=== PATIENT | male | born 1945 | race Caucasian/White ===

== ENCOUNTER 2017-10-02 08:00 | Outpatient (CLI) | payer MEDICARE, OTHER ==
[2017-10-02 18:53] LABS: ALBUMIN/GLOBULIN RATIO 1.3 (1.0-2.2); BILIRUBIN,TOTAL 0.6 mg/dL (0.2-1.0); BUN - BLOOD UREA NITROGEN 13 mg/dL (6-20); CARBON DIOXIDE - CO2 30 mmol/L (21-32); CHLORIDE 104 mmol/L (101-111); CHOL/HDL RATIO 3.4 (<5.0); CHOLESTEROL 137 mg/dL; GFR - MDRD 74 (>89); GLUCOSE 89 mg/dL (70-100); HDL CHOLESTEROL 40 mg/dL; POTASSIUM 3.4 mmol/L (3.5-5.0); SODIUM 140 mmol/L (135-145); TRIGLYCERIDES 82 mg/dL; VLDL CHOLESTEROL 16 mg/dL
== END 2017-10-02 08:01 | disposition home or self-care (01) ==
LOC: LAB.F 08:00
PROVIDERS: ATTEND Family Medicine
DX: E78.5 Hyperlipidemia, unspecified (principal); Z12.5 Encounter for screening for malignant neoplasm of prostate; I25.10 Atherosclerotic heart disease of native coronary artery without angina pectoris; I10 Essential (primary) hypertension
CPT/HCPCS: 36415; 80053; 80061; G0103; 84153

== ENCOUNTER 2018-08-13 12:33 | Outpatient (CLI) | payer MEDICARE, OTHER ==
[2018-08-13 18:26] LABS: ALBUMIN/GLOBULIN RATIO 1.3 (1.0-2.2); ALKALINE PHOSPHATASE 64 IU/L (42-121); ALT ALANINE AMINOTRANSFERASE 20 IU/L (10-60); AST ASPARTATE AMINOTRANSFERASE 21 IU/L (10-42); BILIRUBIN,TOTAL 1.1 mg/dL (0.2-1.0); BUN - BLOOD UREA NITROGEN 17 mg/dL (6-20); CALCIUM 9.2 mg/dL (8.5-10.3); CARBON DIOXIDE - CO2 30 mmol/L (21-32); CHLORIDE 101 mmol/L (101-111); CHOL/HDL RATIO 4.2 (<5.0); CHOLESTEROL 137 mg/dL; CREATININE 0.9 mg/dL (0.6-1.2); GFR - MDRD 83 (>89); GLUCOSE 89 mg/dL (70-100); HDL CHOLESTEROL 33 mg/dL; LDL CHOLESTEROL,CALCULATED 79 mg/dL; LDL/HDL RATIO 2.4 (<3.6); SODIUM 138 mmol/L (135-145); TOTAL PROTEIN 7.1 g/dL (6.7-8.2); VLDL CHOLESTEROL 25 mg/dL
== END 2018-08-13 12:34 | disposition home or self-care (01) ==
LOC: LAB.F 12:33
PROVIDERS: ATTEND Internal Medicine
DX: E78.5 Hyperlipidemia, unspecified (principal); I21.3 ST elevation (STEMI) myocardial infarction of unspecified site
CPT/HCPCS: 36415; 80053; 80061; 83721

== ENCOUNTER 2019-04-29 13:59 | Outpatient (CLI) | payer MEDICARE, OTHER ==
[2019-04-29 17:35] LABS: MEAN CORPUSCULAR HEMOGLOBIN 27.2 pg (27.0-31.0); MEAN CORPUSCULAR HGB CONC 32.3 g/dL (32.0-36.0); MEAN CORPUSCULAR VOLUME 84.3 fL (80.0-94.0); MEAN PLATELET VOLUME 10.6 fL (7.4-11.4); RED BLOOD COUNT 5.15 10^6/uL (4.70-6.10); RED CELL DISTRIBUTION WIDTH 15.5 % (12.0-15.0); WHITE BLOOD COUNT 3.4 x10^3/uL (4.8-10.8)
[2019-04-29 18:02] LABS: ALBUMIN/GLOBULIN RATIO 1.3 (1.0-2.2); ALKALINE PHOSPHATASE 54 IU/L (42-121); ALT ALANINE AMINOTRANSFERASE 23 IU/L (10-60); AST ASPARTATE AMINOTRANSFERASE 22 IU/L (10-42); BILIRUBIN,TOTAL 1.3 mg/dL (0.2-1.0); BUN - BLOOD UREA NITROGEN 15 mg/dL (6-20); CALCIUM 9.2 mg/dL (8.5-10.3); CARBON DIOXIDE - CO2 27 mmol/L (21-32); CHLORIDE 106 mmol/L (101-111); CHOL/HDL RATIO 3.8 (<5.0); CHOLESTEROL 135 mg/dL; CREATININE 0.9 mg/dL (0.6-1.2); GFR - MDRD 83 (>89); GLUCOSE 92 mg/dL (70-100); HDL CHOLESTEROL 36 mg/dL; LDL CHOLESTEROL,CALCULATED 84 mg/dL; LDL/HDL RATIO 2.3 (<3.6); SODIUM 143 mmol/L (135-145); TOTAL PROTEIN 7.1 g/dL (6.7-8.2); VLDL CHOLESTEROL 15 mg/dL
== END 2019-04-29 14:00 | disposition home or self-care (01) ==
LOC: LAB.S 13:59
PROVIDERS: ATTEND Internal Medicine
DX: E78.5 Hyperlipidemia, unspecified (principal); Z12.5 Encounter for screening for malignant neoplasm of prostate; I10 Essential (primary) hypertension
CPT/HCPCS: 36415; 80053; 80061; 84443; 85027; G0103; 83721; 84153

== ENCOUNTER 2020-06-21 11:44 | Outpatient (CLI) | payer MEDICARE, OTHER ==
[2020-06-21 15:34] LABS: HGB - HEMOGLOBIN 14.4 g/dL (14.0-18.0); MEAN CORPUSCULAR HEMOGLOBIN 26.5 pg (27.0-31.0); MEAN CORPUSCULAR HGB CONC 31.3 g/dL (32.0-36.0); MEAN CORPUSCULAR VOLUME 84.6 fL (80.0-94.0); MEAN PLATELET VOLUME 10.5 fL (7.4-11.4); RED BLOOD COUNT 5.44 10^6/uL (4.70-6.10); RED CELL DISTRIBUTION WIDTH 15.2 % (12.0-15.0); WHITE BLOOD COUNT 3.8 x10^3/uL (4.8-10.8)
[2020-06-21 16:37] LABS: ALBUMIN 4.2 g/dL (3.2-5.5); ALBUMIN/GLOBULIN RATIO 1.3 (1.0-2.2); ALKALINE PHOSPHATASE 55 IU/L (42-121); ALT ALANINE AMINOTRANSFERASE 18 IU/L (10-60); AST ASPARTATE AMINOTRANSFERASE 16 IU/L (10-42); BILIRUBIN,TOTAL 1.2 mg/dL (0.2-1.0); BUN - BLOOD UREA NITROGEN 14 mg/dL (6-20); CALCIUM 9.3 mg/dL (8.5-10.3); CARBON DIOXIDE - CO2 25 mmol/L (21-32); CHLORIDE 104 mmol/L (101-111); CHOL/HDL RATIO 3.8 (<5.0); CHOLESTEROL 147 mg/dL; CREATININE 0.9 mg/dL (0.6-1.2); GLUCOSE 93 mg/dL (70-100); HDL CHOLESTEROL 39 mg/dL; LDL CHOLESTEROL,CALCULATED 93 mg/dL; LDL/HDL RATIO 2.4 (<3.6); SODIUM 138 mmol/L (135-145); TOTAL PROTEIN 7.4 g/dL (6.7-8.2); VLDL CHOLESTEROL 15 mg/dL
== END 2020-06-21 11:45 | disposition home or self-care (01) ==
LOC: LAB.S 11:44
PROVIDERS: ATTEND Internal Medicine
DX: E78.5 Hyperlipidemia, unspecified (principal); N40.1 Benign prostatic hyperplasia with lower urinary tract symptoms; N13.8 Other obstructive and reflux uropathy; I10 Essential (primary) hypertension
CPT/HCPCS: 36415; 80053; 80061; 83721; 84153; 85027

== ENCOUNTER 2021-04-02 10:43 | Outpatient (CLI) | payer MEDICARE, OTHER ==
[2021-04-02 14:44] LABS: BASOPHILS % (AUTO) 0.4 %; HCT - HEMATOCRIT 44.1 % (42.0-52.0); HGB - HEMOGLOBIN 14.2 g/dL (14.0-18.0); LYMPHOCYTES # (AUTO) 0.6 10^3/uL (1.5-3.5); LYMPHOCYTES % (AUTO) 22.7 %; MEAN CORPUSCULAR HEMOGLOBIN 27.8 pg (27.0-31.0); MEAN CORPUSCULAR HGB CONC 32.2 g/dL (32.0-36.0); MEAN CORPUSCULAR VOLUME 86.5 fL (80.0-94.0); MEAN PLATELET VOLUME 11.4 fL (7.4-11.4); MONOCYTES # (AUTO) 0.6 10^3/uL (0.0-1.0); MONOCYTES % (AUTO) 21.2 %; NEUTROPHILS # (AUTO) 1.5 10^3/uL (1.5-6.6); NEUTROPHILS % (AUTO) 53.8 %; PLT - PLATELET COUNT 98 10^3/uL (130-450); RED CELL DISTRIBUTION WIDTH 15.9 % (12.0-15.0); WHITE BLOOD COUNT 2.7 x10^3/uL (4.8-10.8)
[2021-04-02 15:43] LABS: ALBUMIN 4.2 g/dL (3.2-5.5); ALBUMIN/GLOBULIN RATIO 1.4 (1.0-2.2); ALKALINE PHOSPHATASE 73 IU/L (42-121); ALT ALANINE AMINOTRANSFERASE 16 IU/L (10-60); AST ASPARTATE AMINOTRANSFERASE 14 IU/L (10-42); BUN - BLOOD UREA NITROGEN 15 mg/dL (6-20); CALCIUM 9.4 mg/dL (8.5-10.3); CARBON DIOXIDE - CO2 28 mmol/L (21-32); CHLORIDE 104 mmol/L (101-111); CHOL/HDL RATIO 4.3 (<5.0); CHOLESTEROL 147 mg/dL; GFR - MDRD 73 (>89); GLUCOSE 92 mg/dL (70-100); HDL CHOLESTEROL 34 mg/dL; LDL CHOLESTEROL,CALCULATED 99 mg/dL; LDL/HDL RATIO 2.9 (<3.6); POTASSIUM 3.9 mmol/L (3.5-5.0); SODIUM 142 mmol/L (135-145); TOTAL PROTEIN 7.2 g/dL (6.7-8.2); TRIGLYCERIDES 71 mg/dL; VLDL CHOLESTEROL 14 mg/dL
[2021-04-02 16:13] LABS: RBC MORPHOLOGY (MULTIPLE) NORMAL APPEARANCE (NORMAL)
[2021-04-02 16:14] LABS: DIFFERENTIAL COMMENT MANUAL=AUTO DIFF; PLATELET ESTIMATE, MANUAL DECREASED (<130,000) (NORMAL); PLATELET MORPHOLOGY NORMAL APPEARANCE (NORMAL)
== END 2021-04-02 10:44 | disposition home or self-care (01) ==
LOC: LAB.S 10:43
PROVIDERS: ATTEND Internal Medicine
DX: I10 Essential (primary) hypertension (principal); E78.5 Hyperlipidemia, unspecified; Z12.5 Encounter for screening for malignant neoplasm of prostate
CPT/HCPCS: 36415; 80053; 80061; 85025; G0103; 83721; 84153

== ENCOUNTER 2021-04-09 12:26 | Outpatient (CLI) | payer MEDICARE, OTHER ==
[2021-04-09 15:55] LABS: HCT - HEMATOCRIT 42.7 % (42.0-52.0); HGB - HEMOGLOBIN 13.8 g/dL (14.0-18.0); MEAN CORPUSCULAR HEMOGLOBIN 27.9 pg (27.0-31.0); MEAN CORPUSCULAR HGB CONC 32.3 g/dL (32.0-36.0); MEAN CORPUSCULAR VOLUME 86.3 fL (80.0-94.0); MEAN PLATELET VOLUME 10.9 fL (7.4-11.4); NEUTROPHILS % (AUTO) 43.5 %; PLT - PLATELET COUNT 104 10^3/uL (130-450); RED BLOOD COUNT 4.95 10^6/uL (4.70-6.10); RED CELL DISTRIBUTION WIDTH 15.9 % (12.0-15.0)
[2021-04-09 16:22] LABS: ABNORMAL LYMPHS % (MANUAL) 0 %
[2021-04-09 16:41] LABS: BAND NEUTROPHILS % (MANUAL) 1 %; LYMPHOCYTES # (MANUAL) 0.8 10^3/uL (1.5-3.5); LYMPHOCYTES % (MANUAL) 28 %; MONOCYTES # (MANUAL) 0.3 10^3/uL (0.0-1.0); NEUTROPHILS # (MANUAL) 0.9 10^3/uL (1.5-6.6); REACTIVE LYMPHS % (MANUAL) 12 %
[2021-04-09 16:42] LABS: DIFFERENTIAL COMMENT MANUAL DIFFERENTIAL; PLATELET ESTIMATE, MANUAL DECREASED (<130,000) (NORMAL); PLATELET MORPHOLOGY NORMAL APPEARANCE (NORMAL); RBC MORPHOLOGY (MULTIPLE) 1+ ANISOCYTOSIS (NORMAL)
[2021-04-11 13:26] LABS: IMMUNOGLOBULIN A 274 mg/dL (70-320); IMMUNOGLOBULIN G 1043 mg/dL (600-1540); IMMUNOGLOBULIN M 129 mg/dL (50-300)
[2021-04-11 22:37] LABS: ALBUMIN 3.8 g/dL (3.8-4.8); ALPHA 1 GLOBULIN 0.3 g/dL (0.2-0.3); ALPHA 2 GLOBULIN 0.7 g/dL (0.5-0.9); BETA 1 GLOBULIN 0.4 g/dL (0.4-0.6); BETA 2 GLOBULIN 0.4 g/dL (0.2-0.5)
== END 2021-04-09 12:27 | disposition home or self-care (01) ==
LOC: LAB.S 12:26
PROVIDERS: ATTEND Internal Medicine
DX: D69.6 Thrombocytopenia, unspecified (principal); D72.819 Decreased white blood cell count, unspecified; I10 Essential (primary) hypertension
CPT/HCPCS: 36415; 81599; 82784; 83615; 84155; 84165; 85025; 86334; 86335

== ENCOUNTER 2021-04-23 11:18 | Outpatient (CLI) | payer MEDICARE, OTHER ==
[2021-04-23 16:26] LABS: BASOPHILS % (AUTO) 0.4 %; HGB - HEMOGLOBIN 13.4 g/dL (14.0-18.0); LYMPHOCYTES % (AUTO) 29.1 %; MEAN CORPUSCULAR HEMOGLOBIN 27.5 pg (27.0-31.0); MEAN CORPUSCULAR HGB CONC 31.2 g/dL (32.0-36.0); MEAN CORPUSCULAR VOLUME 88.1 fL (80.0-94.0); MEAN PLATELET VOLUME 11.5 fL (7.4-11.4); MONOCYTES % (AUTO) 29.8 %; NEUTROPHILS % (AUTO) 38.4 %; PLT - PLATELET COUNT 76 10^3/uL (130-450); RED BLOOD COUNT 4.88 10^6/uL (4.70-6.10); RED CELL DISTRIBUTION WIDTH 16.4 % (12.0-15.0); WHITE BLOOD COUNT 2.6 x10^3/uL (4.8-10.8)
[2021-04-23 16:30] LABS: ABNORMAL LYMPHS % (MANUAL) 0 %; BAND NEUTROPHILS % (MANUAL) 0 %
[2021-04-23 17:11] LABS: LYMPHOCYTES # (MANUAL) 1.4 10^3/uL (1.5-3.5); LYMPHOCYTES % (MANUAL) 47 %; MONOCYTES # (MANUAL) 0.3 10^3/uL (0.0-1.0); NEUTROPHILS # (MANUAL) 0.9 10^3/uL (1.5-6.6); REACTIVE LYMPHS % (MANUAL) 7 %
[2021-04-23 17:12] LABS: DIFFERENTIAL COMMENT MANUAL DIFFERENTIAL; PLATELET ESTIMATE, MANUAL DECREASED (<130,000) (NORMAL); PLATELET MORPHOLOGY NORMAL APPEARANCE (NORMAL); RBC MORPHOLOGY (MULTIPLE) NORMAL APPEARANCE (NORMAL)
== END 2021-04-23 11:19 | disposition home or self-care (01) ==
LOC: LAB.S 11:18
PROVIDERS: ATTEND Internal Medicine
DX: D72.819 Decreased white blood cell count, unspecified (principal)
CPT/HCPCS: 36415; 85025

== ENCOUNTER 2021-05-08 11:25 | Outpatient (CLI) | payer MEDICARE, OTHER ==
[2021-05-08 14:53] LABS: BASOPHILS % (AUTO) 0.5 %; HCT - HEMATOCRIT 41.4 % (42.0-52.0); HGB - HEMOGLOBIN 13.2 g/dL (14.0-18.0); LYMPHOCYTES % (AUTO) 28.9 %; MEAN CORPUSCULAR HEMOGLOBIN 28.2 pg (27.0-31.0); MEAN CORPUSCULAR HGB CONC 31.9 g/dL (32.0-36.0); MEAN CORPUSCULAR VOLUME 88.5 fL (80.0-94.0); MEAN PLATELET VOLUME 10.5 fL (7.4-11.4); MONOCYTES % (AUTO) 22.4 %; NEUTROPHILS % (AUTO) 45.7 %; PLT - PLATELET COUNT 54 10^3/uL (130-450); RED BLOOD COUNT 4.68 10^6/uL (4.70-6.10); RED CELL DISTRIBUTION WIDTH 16.6 % (12.0-15.0)
[2021-05-08 15:17] LABS: SLIDE REVIEW? Indicated
[2021-05-08 15:19] LABS: BAND NEUTROPHILS % (MANUAL) 0 %
[2021-05-08 15:47] LABS: ABNORMAL LYMPHS % (MANUAL) 6 %; LYMPHOCYTES # (MANUAL) 0.6 10^3/uL (1.5-3.5); LYMPHOCYTES % (MANUAL) 23 %; MONOCYTES # (MANUAL) 0.5 10^3/uL (0.0-1.0); NEUTROPHILS # (MANUAL) 0.9 10^3/uL (1.5-6.6)
[2021-05-08 15:48] LABS: DIFFERENTIAL COMMENT MANUAL DIFFERENTIAL; PLATELET ESTIMATE, MANUAL DECREASED (<130,000) (NORMAL); PLATELET MORPHOLOGY NORMAL APPEARANCE (NORMAL); RBC MORPHOLOGY (MULTIPLE) NORMAL APPEARANCE (NORMAL)
== END 2021-05-08 11:26 | disposition home or self-care (01) ==
LOC: LAB.S 11:25
PROVIDERS: ATTEND Internal Medicine
DX: D72.819 Decreased white blood cell count, unspecified (principal)
CPT/HCPCS: 36415; 85025

== ENCOUNTER 2021-05-25 09:16 | Outpatient (CLI) | payer MEDICARE, OTHER ==
[2021-05-25] MEDS ORDERED: LACTATED RINGERS 1,000 ML IV ONE ×2 (09:37→12:28)
[2021-05-25 11:15] LABS: BASOPHILS % (AUTO) 0.6 %; HCT - HEMATOCRIT 41.4 % (42.0-52.0); HGB - HEMOGLOBIN 13.6 g/dL (14.0-18.0); LYMPHOCYTES % (AUTO) 28.6 %; MEAN CORPUSCULAR HEMOGLOBIN 28.6 pg (27.0-31.0); MEAN CORPUSCULAR HGB CONC 32.9 g/dL (32.0-36.0); MEAN CORPUSCULAR VOLUME 87.2 fL (80.0-94.0); MEAN PLATELET VOLUME 9.9 fL (7.4-11.4); MONOCYTES % (AUTO) 34.2 %; NEUTROPHILS % (AUTO) 32.9 %; RED BLOOD COUNT 4.75 10^6/uL (4.70-6.10); RED CELL DISTRIBUTION WIDTH 16.3 % (12.0-15.0)
[2021-05-25 11:17] LABS: PLT - PLATELET COUNT 30 10^3/uL (130-450); WHITE BLOOD COUNT 1.6 x10^3/uL (4.8-10.8)
[2021-05-25 11:18] LABS: ABNORMAL LYMPHS % (MANUAL) 0 %
[2021-05-25 11:20] LABS: INR 1.2 (0.8-1.2); PT - PROTHROMBIN TIME 13.5 secs (9.9-12.6)
[2021-05-25 11:27] LABS: PARTIAL THROMBOPLASTIN TIME 31.2 secs (24.9-33.3)
[2021-05-25 11:40] LABS: BAND NEUTROPHILS % (MANUAL) 2 %; DIFFERENTIAL COMMENT MANUAL DIFFERENTIAL; LYMPHOCYTES # (MANUAL) 0.8 10^3/uL (1.5-3.5); LYMPHOCYTES % (MANUAL) 14 %; MONOCYTES # (MANUAL) 0.2 10^3/uL (0.0-1.0); NEUTROPHILS # (MANUAL) 0.6 10^3/uL (1.5-6.6); REACTIVE LYMPHS % (MANUAL) 36 %
--- NOTE | 2021-05-25 12:42 | CT Report ---
PROCEDURE: BONE MARROW BX W/ASPIRATION Sedation analgesia for (7:30 minutes. INDICATIONS: THROMBOCYTOPENIA TECHNIQUE: The indications, alternatives, benefits, risks, and possible complications of the procedure were comm unicated to the patient. Informed written consent from the patient was obtained and placed in the art. Continuous EKG and hemodynamic monitoring was started by trained personnel. For radiation dose reduction, the following was used: automated exposure control, adjustment of mA and/or kV according to patient size. The patient was brought to the CT suite and silvering applicator spiral CT imaging was performed with localization g rid. The appropriate site for percutaneous access to the biopsy target was marked, was prepped and d raped sterilely, and was infused with local anaesthesia. Under CT guidance, a 11-gauge bone drill wa s advanced to the biopsy target, and aspirated specimen(s) were obtained. The trocar was utilized to obtain a sizable core of bone marrow. The trocar and needle were then removed, and the patient was s ent for post-procedure monitoring. COMPARISON: None. FINDINGS: Biopsy site: Medial left iliac bone Needle: 11 gauge bone marrow drill Number of passes: 1 Medications: 1% lidocaine for local anaesthesia. IV Fentanyl and Versed for conscious sedation for less than 30 minutes (see nursing record). Complications: None. IMPRESSION: Successful CT-guided medial left iliac bone marrow biopsy. Comment: Procedure was performed in the presence of a cytology tech, who prepared the slides sindyi ately for bone marrow review. Reviewed by: Arturo eRinoso MD on 05/25/2021 12:40 PM PDT Approved by: Arturo Reinoso MD on 05/25/2021 12:40 PM PDT Station ID: [id number]
[2021-05-25 13:59] VITALS: BP 146/88
== END 2021-05-25 09:17 | disposition home or self-care (01) ==
LOC: LAB 09:16
PROVIDERS: ATTEND Internal Medicine
DX: D61.818 Other pancytopenia (principal)
CPT/HCPCS: 36415; 38222; 77012; 85025; 85610; 85730; J7120

== ENCOUNTER 2021-06-01 14:00 | Outpatient (CLI) | payer MEDICARE, OTHER ==
--- NOTE | 2021-06-01 16:53 | CONSULTATION NOTE ---
Palliative Care Consultation - Referral Referring Provider: Dr. Emmett Suh Time of Visit: [id number] Referral setting: Home Referral Reason: MDS/Goals of Care - Information Sources Records reviewed: Previous records reviewed History/Review of Systems obtained from: Patient, Family ( Bina present) Exam limitations: Clinical condition (anxiety with appointment) - History of Present Illness Brief History of Present Illness: This is an anxious 75-year-old gentleman who presented to his primary care provider with worsening pancytopenia. He was referred to oncology, for which she had a CT scan of the neck, abdomen and pelvis that did not show any increase lymphadenopathy, he did have a bone marrow unfortunately insufficient for complete analysis but has some pending cytogenetics and FISH. Preliminary findings show a high concern for for myelodysplastic syndrome high-grade versus AML. Patient is quite anxious this was given options in the context of how best to proceed, including intensive chemotherapy followed by consolidation and consideration of allogenic stem cell transplant with curative intent, palliative intent with venetoclax hypomethylating agent, and thirdly best supportive care/hospice. Of concern has been the rate of decline with his pancytopenia, on 05/30, his WBC was 1.6 and neutrophils 0.4, platelets had gone from 05/16 42,000 to 05/29 [id number], as well as sitting at a hemoglobin of 12.9. Patient is feeling quite overwhelmed at the time of discussion, and given the severity of his i llness, is needing to make a decision regarding which approach aligns with his goals. An urgent palliative care referral was placed to help with decision- making, and to tease out goals of care. Patient and his are appropriately distressed with current findings and limited options. Patient is quite clear at this point in time he does not want to pursue inpatient chemo/possible stem cell transplant in the context of needing to urgently be admitted and address this as well as taking the chance of poor outcome with aggressive approach. He though still is not ready to face end-of-life, he does have some short-term goals he would like to accomplish, and included in the discussion if no treatment and/or supportive care only most likely looking at days to weeks. In the context of meeting his short-term goal which is to wrap up end-of-life planning, possibly focus on some improved quality of life as well as gaining quantity decision was made to pursue palliative treatment. This involved a long discussion in clarification of understanding of options, goals, and managing concerns. Medical/Surgical History - Past Medical History Cardiovascular: reports: Hypertension, High cholesterol, Coronary artery disease Respiratory: reports: None Endocrine/Autoimmune: reports: None GI: reports: Hiatal hernia, Cholelithiasis : reports: Benign prostate hypertrophy HEENT: reports: None, Chronic vision loss Psych: reports: Anxiety Musculoskeletal: reports: None Derm: reports: None MRSA Hx?: No - Past Surgical History General: reports: Cholecystectomy, Colonoscopy Cardiovascular: reports: CABG (X4) Social History - Living Situation Living arrangement: At home Living Situation: With spouse/s.o. Support System: Patient has been to [facility] for 23 years, he does have some siblings but as far as community support and close support this is limited. 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 They have a krissy home in [place], and dogs but no children. Family History - Family History Family History: Mother: , CAD, Father: , [place], Sister: Alive and Well (o hx of ca) Medications/Allergies - Medications Home Medications: Ambulatory Orders Medication Instructions Recorded Confirmed Simvastatin 20 mg PO DAILY 03/04/14 06/01/21 Doxazosin Mesylate [Cardura] 2 mg PO DAILY 05/16/21 06/01/21 Alprazolam [Xanax] 0.25 mg PO TID PRN 06/01/21 06/01/21 Sulfamethox/Trimeth 800/160 1 tab PO .MWF 06/01/21 06/01/21 [Bactrim Ds] levoFLOXacin [Levofloxacin] 500 mg PO DAILY 06/01/21 06/01/21 - Allergies Allergies/Adverse Reactions: Allergies Allergy/AdvReac Type Severity Reaction Status Date / Time No Known Drug Allergies Allergy Verified 05/30/21 15:06 Review of Systems - Constitutional Constitutional: reports: Fatigue, Weakness, Weight loss (a couple of pounds only). denies: Fever, Chills - Eyes Eyes: reports: Corrective lenses - Cardiovascular Cardiovascular: reports: Decr. exercise tolerance. denies: Edema - Respiratory Respiratory: denies: SOB at rest - Gastrointestinal Gastrointestinal: denies: Constipation, Nausea, Reflux/heartburn - Musculoskeletal Musculoskeletal: reports: Muscle weakness - Psychiatric Psychiatric: reports: Depression, Anxiety. denies: Suicidal (reports thinking about suicide but no plans / actions at this time) - Hematologic/Lymphatic Hematologic/Lymph: reports: Anemia. denies: Recurrent infections - All Other Systems All Other Systems: reports: Reviewed and negative Physical Exam - Vital Signs Temperature: 97.2 C Pulse Rate: 71 Respiratory Rate: 18 O2 Saturation: 99 (ra @ rest) Blood Pressure: 152/92 (recently off b/p meds; reports sensitive to anxiety) - Physical Exam General Appearance: positive: Alert, Mild distress, Anxious Eyes Bilateral: positive: Normal inspection ENT: positive: No signs of dehydration Neck: positive: Trachea midline Cardiovascular: positive: Regular rate & rhythm Respiratory: positive: No respiratory distress, Breath sounds nml Abdomen: positive: Soft Skin: positive: Pallor, Dryness. negative: Bruising Extremities: positive: No pedal edema Neurologic/Psychiatric: positive: Oriented x3, Depressed mood/affect Palliative Care - POLST Patient has POLST: Yes POLST Status: DNR, Selective Treatment (completed at visit) Pain: No pain Feelings of wellbeing/Perceived Quality of Life: Fair, Worsening Constipation: No Performance Status: Patient has several acres to manage, has noted since March decreased ability to tolerate activity needed. He is hoping to get a little bit stronger to be able to complete some of his end-of-life tasks. He is managing his own ADLs at this point in time, and is presenting as an ECOG 1 - Palliative Care Discussion: Discussion centered around patient's goals and what is most important to him, he does have some tasks he would like to complete before his end-of-life. He has been working on legal and financial documents, does have DPOA and healthcare directives. Is very interested in completing the POLST. He does have a fear of blood products, in the context of negative language around cannabilism, negative language about other peoples DNA in him, finds it quite distressing, did try to address this in the context to try a different way of thinking about this with cognitive behavioral reframing. Patient is aware he will need blood products if he is to choose treatment and needed support. Bina herself is in a state of disbelief, she works through things by taking notes and processing and coming to an understanding as best she can of information given. 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 He does better with information that he can put together in his framework. We did complete the POLST with DN AR/DNI and after much discussion looked at selective treatment with DNI and willingness to treat reversible conditions in the context of where he was in his trajectory and weighing benefits of burdens. He does feel like Kaila understands his wishes. He does not want his suff ering prolonged and end-of-life would like to have a at home, Bina is and supported this. The other thing patient is interested in is with dignity being able to make a decision when he is ready for end-of-life to have that as an option. Did recommend he look at end-of-life [facility], and will try and make arrangements for Dr. Suh to have a conversation to get this in the record as a first request. Patient remains very distressed but is willing to move forward with supportive treatments, labs, and transfusions as well as chemotherapy. 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 Patient is a [facility] for setting goals of care, at this time has chosen palliative approach with chemotherapy and supportive care. Patient has high anxiety, but would like to look at both quality and quantity of life in the context of treatment. Palliative care providing support regarding goal clarification, symptom management, and anticipatory guidance. Recommendations/Counseling Done: 1. Pancytopenia. Patient has worsening leukopenia, and consultation with patient's oncologist Dr. Bri WALLIS, ordered Levaquin 500 mg daily and Bactrim DS Friday. Labs scheduled for Friday, with goal to transfuse for hemoglobin less than 7 and platelets 20,000 or less. 2. MDS high-grade. Patient's underlying etiology is still yet to be defined, but patient is choosing palliative intent treatment. This was communicated to his oncologist, there will be a repeat bone marrow biopsy as well as ordering of medications next week. 3. Anxiety. This is multifactorial, patient has underlying generalized anxiety disorder as well's situational anxiety. Discussed need to have tool in "toolbox" we will go ahead and order alprazolam 0.25 mg up to 3 times daily. Counseling provided regarding low dose, if ineffective can use 0.5 mg. We will continue to monitor anxiety as well as depression and concern for suicidal ideation. Patient without any plan at this point in time, did provide suicide prevention hotline. 4. Advanced care planning. Patient short-term goals include wrapping up affairs, as well as exploring hoping for the best with treatment to both improve quality and quantity of life. POLST was completed with DN AR/DNI and selective treatments. Long discussion regarding weighing benefits and burdens of treatments as well as patient's hope to not prolong suffering. Counseling provided regarding DWD as patient is looking that as an option. 90 minutes with greater than 50% of this done in counseling regarding goals of care, symptom management, completing POLST, and anticipatory guidance coordination of care with oncology team
== END 2021-06-01 14:01 | disposition home or self-care (01) ==
LOC: PC 14:00
PROVIDERS: ATTEND Nurse Practitioner Adult Health
DX: Z51.5 Encounter for palliative care (principal); D61.818 Other pancytopenia; Z66 Do not resuscitate; D46.9 Myelodysplastic syndrome, unspecified; F41.9 Anxiety disorder, unspecified
CPT/HCPCS: 99345

== ENCOUNTER 2021-06-22 12:51 | Outpatient (CLI) | payer MEDICARE, OTHER ==
--- NOTE | 2021-06-22 19:05 | CONSULTATION NOTE ---
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 This is been quite frustrating, as well as awaiting scheduling of Port-A-Cath.Patient tolerated fairly well except for day #1 had significant nausea and vomiting including dry heaves, Compazine was ineffective, and did receive ondansetron which she has been taking prior to injections with good response. Patient reports anxiety is been manageable, as he has gotten his head around what is going on. He is also starting to put together his end-of-life plans, getting rid of things, and finalizing legal/financial issues. He has been using the alprazolam 0.25 mg with good effect, only currently needing about 1 time a day. He has received platelets, last infusion was on Friday for platelet count of 8000. He did have some minor rectal bleeding with constipation, but no other acute signs or symptoms of bleeding. He does report significant fatigue, and low stamina including shortness of breath with activity but notes a quick recovery. Palliative care meeting with patient and to check in on how things are going, as well as adjust any quality of life issues for symptom management. Past Medical History: Hypertension, high cholesterol, CAD, cholelithiasis, BPH, chronic vision loss, anxiety, history of colonoscopy and CABG x4 Social History - Living Situation Living arrangement: At home Living Situation: With spouse/s.o. Support System: Patient has been to [place] for 23 years, does have siblings, his nephew came to assist with some things regarding getting "rid of things". He is a retired musician, they have a krissy home in [place] with dogs. Medications/Allergies - Medications Home Medications: Ambulatory Orders Medication Instructions Recorded Confirmed Simvastatin 20 mg PO DAILY 03/04/14 06/06/21 Doxazosin Mesylate [Cardura] 2 mg PO DAILY 05/16/21 06/06/21 Alprazolam [Xanax] 0.25 mg PO TID PRN 06/01/21 06/06/21 Sulfamethox/Trimeth 800/160 1 tab PO .MWF 06/01/21 06/06/21 [Bactrim Ds] levoFLOXacin [Levofloxacin] 500 mg PO DAILY 06/01/21 06/06/21 Fluconazole [Diflucan] 200 mg PO DAILY 30 Days #60 tablet 06/06/21 allopurinoL [Allopurinol] 300 mg PO DAILY #30 tablet 06/06/21 Prochlorperazine Maleate 10 mg PO Q6HR PRN #30 tab 06/11/21 [Compazine] ondansetron HCL [Ondansetron HCl] 1 mg PO Q8HR 06/14/21 06/14/21 - Allergies Allergies/Adverse Reactions: Allergies Allergy/AdvReac Type Severity Reaction Status Date / Time No Known Drug Allergies Allergy Verified 05/30/21 15:06 Review of Systems - Constitutional Constitutional: reports: Fatigue, Weakness, Weight stable. denies: Fever, Chills - Eyes Eyes: reports: Corrective lenses - Ears, Nose & Throat Ears, Nose & Throat: reports: Sore throat (has since resolved) - Cardiovascular Cardiovascular: reports: Decr. exercise tolerance. denies: Edema - Respiratory Respiratory: reports: SOB with exertion. denies: SOB at rest - Gastrointestinal Gastrointestinal: reports: Constipation (hard stool; using prunes), Nausea (reports persistent low grade), Early satiety - Musculoskeletal Musculoskeletal: reports: Muscle weakness - Integumentary Integumentary: reports: Dryness - Neurological Neurological: reports: General weakness - Psychiatric Psychiatric: reports: Depression, Anxiety. denies: Suicidal (reports thinking about suicide but no plans / actions at this time) - Hematologic/Lymphatic Hematologic/Lymph: reports: Anemia (11.7). denies: Recurrent infections - All Other Systems All Other Systems: reports: Reviewed and negative Physical Exam - Vital Signs Pulse Rate: 77 Respiratory Rate: 18 Blood Pressure: 114/81 - Physical Exam General Appearance: positive: No acute distress, Alert. negative: Anxious Eyes Bilateral: positive: Normal inspection ENT: positive: No signs of dehydration Neck: positive: Trachea midline Cardiovascular: positive: Regular rate & rhythm Respiratory: positive: No respiratory distress, Breath sounds nml Abdomen: positive: Soft Skin: positive: Pallor, Dryness. negative: Bruising Extremities: positive: No pedal edema Neurologic/Psychiatric: positive: Oriented x3, Depressed mood/affect, Flat affect Palliative Care - POLST Patient has POLST: Yes POLST Status: DNR, Selective Treatment Pain: No pain Tiredness/Fatigue: Moderate (4-6) Constipation: Yes, Intermittent constipation Performance Status: Patient able to manage his ADLs, is limited as far as endurance and activity tolerance. Is pacing himself. - Palliative Care Discussion: Patient has had a very busy schedule with his injections, blood draws, and platelet infusions. He also has been working diligently at home on his affairs and "stuff". He reports he has come to a place of managing as far as his attitude, and anxiety. He does understand the seriousness of his illness, at this point in time is tolerating treatment has been quite frustrated with the insurance approval as well as Port-A-Cath placement awaiting. Check in with both patient and in the context of how they are doing, psychosocial support and continued building rapport. Patient did complete a POLST with DN AR/DNI and selective treatments at our last visit Results - Lab Results Lab results reviewed: Yes Lab and Imaging Results: No platelets needed at 27,000, will arrange for labs on Friday. Received platelets on Friday Impression and Recommendations - Palliative Care Impression: This is a anxious 75-year-old gentleman with AML, currently has started his chemotherapy with azacitadine, still awaiting approval of Venetoclax.Patient has been tolerating with mild redness in abdomen, nausea currently controlled. Palliative care providing support for symptom management and anticipatory guidance Recommendations/Counseling Done: 1. Anxiety. Multifactorial, patient has underlying general anxiety as well as a history of depression. He has been able to use alprazolam with good results, using about one time a day. Patient is not interested in further treatment for depression, will continue to monitor, may benefit from further long-acting SSRI/SNRI but currently feels doing better. Counseling provided and support to normalize patient and 's current response to situation. 2. AML. Labs arranged to follow-up on platelet transfusion, platelets had dropped to eight, are holding at 27,000 today. Next labs are not scheduled until Friday, had received platelets Wednesday past, will make arrangements for labs on Friday and defer to oncology for further scheduling. Patient does need Port-A-Cath placement, follow-up regarding Port-A-Cath placement at [facility], unfortunately had not received the order, has been refaxed, awaiting schedule. Did review with patient, would need some coordination of care as well most likely need higher platelet count, cannot be definitive but surgeon will need to give level he is comfortable. Verbalized understanding. Patient frustrated with still awaiting his venetoclax, [facility] staff working on approval, left packet has very specific regarding their insurance plan. Still awaiting final results from bone marrow biopsy, but were obtained to send him with paperwork. 3. Constipation. Patient describes hard stools with some minor rectal bleeding that resolved with increased platelets. Discussed need to have a soft regular BM daily, secondary to infection risk and bleeding. Counseling provided regarding bowel program with addition of MiraLAX and senna. Written instructions provided. 4. Anorexia. Patient has had taste changes, as well as mild anorexia. Counseling provided regarding focus on nutrition, patient does like smoothies. Counseling reviewed regarding nutritional intake. 5. Advanced care planning. Patient does have POLST in place with DN AR/DNI and selective treatments. Is getting his financial and legal end-of-life documents completed, as well as distributing belongings. Patient aware of the seriousness of his illness, we are hoping for the best, patient continues to revisit goals of care and is aware we will need to wait several months to define if treatment effective or not. 60 minutes review of labs, oncology notes, coordination of care with oncology team regarding scheduling of labs, counseling with patient for symptom management and anticipatory guidance
== END 2021-06-22 12:52 | disposition home or self-care (01) ==
LOC: PC 12:51
PROVIDERS: ATTEND Nurse Practitioner Adult Health
DX: Z51.5 Encounter for palliative care (principal); F41.1 Generalized anxiety disorder; R68.81 Early satiety; R63.0 Anorexia; R43.9 Unspecified disturbances of smell and taste; R11.2 Nausea with vomiting, unspecified; T45.1X5A Adverse effect of antineoplastic and immunosuppressive drugs, initial encounter; K59.00 Constipation, unspecified; C92.00 Acute myeloblastic leukemia, not having achieved remission; Z79.899 Other long term (current) drug therapy; Z66 Do not resuscitate
CPT/HCPCS: 99215

== ENCOUNTER 2021-07-13 11:25 | Day surgery (SDC) | payer MEDICARE, OTHER ==
[2021-07-13] MEDS ORDERED: CEFAZOLIN SODIUM IN 0.9 % NACL 2 GM/100 ML BAG IV ONE (11:41)
[2021-07-13] MEDS ORDERED: SODIUM CHLORIDE 0.9% 1,000 ML IV ONE ×2 (11:46→15:57)
--- NOTE | 2021-07-13 14:43 | ANESTHESIA ---
Pre-Anesthesia VS, & Labs - Diagnosis AML - Procedure Exploratory laparoscopy Vital Signs: Temp Pulse Resp BP Pulse Ox 36.5 C 74 16 111/77 100 07/13/21 11:46 07/13/21 11:46 07/13/21 11:46 07/13/21 11:46 07/13/21 11:46 Height: 5 ft 6 in Weight (kg): 71.3 kg Body Mass Index: 25.3 BMI Classification: Overweight - NPO Last Food Intake: SBO, full stomach - Lab Results Current Lab Results: Laboratory Tests 07/13/21 13:38: Plt Count 74 L Fish Bones: 07/13/21 13:38 Home Medications and Allergies Alprazolam [Xanax] 0.25 mg PO TID PRN 06/01/21 Sulfamethox/Trimeth 800/160 [Bactrim Ds] 1 tab PO .MWF 06/01/21 levoFLOXacin [Levofloxacin] 500 mg PO DAILY 06/01/21 ondansetron HCL [Ondansetron HCl] 1 mg PO Q8HR 06/14/21 Allergies/Adverse Reactions: Allergies Allergy/AdvReac Type Severity Reaction Status Date / Time No Known Drug Allergies Allergy Verified 05/30/21 15:06 Anes History & Medical History - Anesthetic History Anesthesia Complications: reports: No previous complications Family history of Anesthesia Complications: Denies Family history of Malignant Hyperthermia: Denies - Medical History Cardiovascular: reports: Hypertension, Coronary artery disease Pulmonary: reports: None Gastrointestinal: reports: GERD, Hiatal hernia, Chronic constipation Urinary: reports: Benign prostate hypertrophy Musculoskeletal: reports: None Endocrine/Autoimmune: reports: None Skin: reports: Other Smoking Status: Never smoker - Surgical History General: reports: Cholecystectomy, Colonoscopy Cardiothoracic: reports: CABG Exam General: Alert, Oriented x3, Cooperative Dental: WNL Mouth Openin Fingerbreadth Neck Mobility: Normal Mallampati classification: II Thyromental Distance: 4-6 cm Respiratory: Lungs clear, Normal breath sounds, No respiratory distress Cardiovascular: Regular rate Neurological: Normal speech Mental/Cognitive Status: Alert/Oriented X3, Normal for patient Cognitive Status: Within normal limits Plan Anesthesia Type: Total IV Consent for Procedure(s) Verified and Reviewed: Yes Code Status: Attempt Resuscitation ASA classification: 3-Severe systemic disease Is this case an emergency?: No
[2021-07-13] MEDS ORDERED: PROPOFOL 500 MG/50 ML 500 MG/50 ML VIAL ONE (15:15)
[2021-07-13] MEDS ORDERED: LIDOCAINE-MPF 2% 5 ML VIAL ONE (15:15)
[2021-07-13] MEDS ORDERED: MIDAZOLAM 2 MG/2 ML VIAL ONE (15:18)
[2021-07-13] MEDS ORDERED: BUPIVACAINE 0.5% PF 10 ML VIAL ONE (15:24)
[2021-07-13] MEDS ORDERED: LIDOCAINE MPF 2%-EPI 1:200000 20 ML VIAL ONE (15:24)
[2021-07-13] MEDS ORDERED: LIDOCAINE 2%-EPI 1:100000 20 ML MDV SUBQ ONE (15:38)
[2021-07-13] MEDS ORDERED: BUPIVACAINE 0.5% PF 30 ML VIAL SUBQ ONE (15:38)
--- NOTE | 2021-07-13 16:00 | XRAY Report ---
PROCEDURE: OR C-Arm Procedure INDICATIONS: port TECHNIQUE: Single intraoperative fluoroscopic image of upper chest. COMPARISON: None. FINDINGS: Intraoperative fluoroscopic image of upper chest shows left-sided central venous catheter placement, the tip is in the region of SVC. IMPRESSION: Fluoroscopy guidance was provided intraoperatively for port placement. Reviewed by: Yevgeniy Foley MD on 07/13/2021 3:58 PM PDT Approved by: Yevgeniy Foley MD on 07/13/2021 3:58 PM PDT Station ID: [id number]
--- NOTE | 2021-07-13 16:00 | OPERATIVE REPORT ---
Operative Report - General Procedure Date: 07/13/21 Planned Procedure: Port placement for chemotherapy Pre-Op Diagnosis: Acute myelogenous leukemia Procedure Performed: Left subclavian port placement Post Op Diagnosis: AML - Procedure Note Primary Surgeon: Chen Anesthesia Provider: LITA Davis Estimated Blood Loss (mL): 5 Findings: Port in good position in the superior vena cava Complications: None apparent - Other Other Information/Narrative: After obtaining informed consent, the patient is brought to the operating room and placed in supine position on the operating table. Following successful induction of sedation with monitored anesthesia care and appropriate padding of all bony prominences, the left chest and neck were prepped and draped in the standard surgical fashion. A timeout was held per scope protocol. All elements of the surgical safety checklist were followed before, during, and after the procedure. Following infiltration with local anesthetic to create a field block, the left subclavian vein was accessed in the deltopectoral groove. The J-wire was gently placed into the vein. Fluoroscopy was used to confirm the position of the wire and in the subclavian vein. We anesthetized the existing healed scar in the area around it for placement of the port itself. An incision was created here and carried down through the skin and subcutaneous tissue. A pocket was created with blunt dissection. The port tubing was attached to the tunneling device and passed from the access site of the vein into the pocket. It was trimmed to an appropriate length and the port attached. The port was sewn into place in the pocket. The dilator and introducer were then passed over the J-wire that was in the subclavian vein. The J-wire and dilator were removed leaving only the introducer. The tubing was then passed through the introducer and the introducer cracked and removed per residential installer's directions. The port was then checked for function and flushed and latrell easily. Additional local anesthetic was applied to the chest wall. The port pocket was closed with interrupted Vicryl sutures and Monocryl stitches were placed in both skin incision sites. All sponge, needle, and instrument counts were correct at the conclusion of the case. Chest x-ray in the postanesthesia care unit revealed the port in good position in the superior vena cava without evidence of pneumothorax.
[2021-07-13] MEDS ORDERED: MORPHINE 2 MG/ML CARPUJECT IVP PRN (16:15)
[2021-07-13] MEDS ORDERED: NALOXONE 0.4 MG/ML VIAL IVP PRN (16:15)
[2021-07-13] MEDS ORDERED: HYDROmorphone 0.5 MG/0.5 ML SYRINGE IVP PRN (16:15)
[2021-07-13] MEDS ORDERED: ePHEDrine 50 MG/ML VIAL IVP PRN (16:15)
[2021-07-13] MEDS ORDERED: ATROPINE ABBOJECT 1 MG/10 ML SYRINGE IVP PRN (16:15)
[2021-07-13] MEDS ORDERED: METOCLOPRAMIDE 10 MG/2 ML VIAL IVP PRN (16:15)
[2021-07-13] MEDS ORDERED: ONDANSETRON 4 MG/2 ML VIAL IVP PRN (16:15)
[2021-07-13] MEDS ORDERED: fentaNYL 100 MCG/2 ML VIAL IVP PRN (16:15)
--- NOTE | 2021-07-13 16:34 | XRAY Report ---
PROCEDURE: Chest for Line Placement INDICATIONS: port TECHNIQUE: One view of the chest was acquired. COMPARISON: Chest CT 05/18/2021 FINDINGS: Surgical changes and devices: Left Port-A-Cath is present. Distal tip is projecting cephalad at the s ubclavian/internal jugular vein junction. Sternal wires are present including fractured superior wire . Lungs and pleura: No pleural effusions or pneumothorax. Lungs are clear. Lung apices are not inclu ded within the [id number]. Mediastinum: Mediastinal contours appear normal. Heart size is normal. Bones and chest wall: No suspicious bony lesions. Overlying soft tissues appear unremarkable. IMPRESSION: Left-sided Port-A-Cath distal tip is projecting cephalad. Repositioning is recommended. The above findings were discussed with Dr. Roxann Siddiqui on 07/13/2021 at 4:32 PM. Reviewed by: Maria Guadalupe Sanchez MD on 07/13/2021 4:32 PM PDT Approved by: Maria Guadalupe Sanchez MD on 07/13/2021 4:32 PM PDT Station ID: [id number]
[2021-07-13] MEDS ORDERED: LACTATED RINGERS 1,000 ML IV SCH (17:00)
[2021-07-13 17:13] VITALS: BP 103/62
--- NOTE | 2021-07-13 17:57 | ANESTHESIA POST OP EVALUATION ---
Anesthesia Post Eval - Post Anesthesia Eval Vitals: Last Vital Signs Temp 36.5 C 07/13/21 17:13 Pulse 64 07/13/21 17:13 Resp 16 07/13/21 17:13 BP 103/62 07/13/21 17:13 Pulse Ox 98 07/13/21 17:13
== END 2021-07-13 11:26 | disposition home or self-care (01) ==
LOC: SDS 11:25
PROVIDERS: ATTEND Surgery
DX: C92.00 Acute myeloblastic leukemia, not having achieved remission (principal); I25.10 Atherosclerotic heart disease of native coronary artery without angina pectoris; I10 Essential (primary) hypertension; N40.1 Benign prostatic hyperplasia with lower urinary tract symptoms; N13.8 Other obstructive and reflux uropathy
CPT/HCPCS: 36415; 36561; 71045; 85049; C1788; J0690

== ENCOUNTER 2021-07-17 11:00 | Outpatient (CLI) | payer MEDICARE, OTHER ==
--- NOTE | 2021-07-17 12:15 | CONSULTATION NOTE ---
Palliative Care Follow Up - Referral Referring Provider: Dr. Emmett Suh Time of Visit: 11:00 75 minutes Referral setting: [facility] [place] Referral Reason: AML/Goals of Care - Information Sources Records reviewed: Previous records reviewed History/Review of Systems obtained from: Patient, Family ( Bina) - History of Present Illness Update Brief HPI Update: This is a 75-year-old gentleman who was recently diagnosed with AML, had been struggling whether to receive treatment or not originally but had decided to move forward. Did have some goals he wanted to complete, and has been getting azacitidine initiated 06/12/2021. He has been having more symptoms, reports night sweats, evening fevers, and hypotension over last several weeks and feels the fatigue has been very limiting. He did have a fall last night, including bumping his left orbital area with bruising and bleeding. He had had a fall last night, including breaking a glass thermometer, and she found him on the floor. This was quite frightening for Bina his , today he is still feeling pretty fatigued and weak. Denies any headache. He is having some intermittent chest discomfort. He had recently met with the oncologist on 07/11/2021 and had been discussing with him as well about suicide versus DWD. Patient identifies his quality of life is continued to decline, and had expressed to the oncology nurse, about quitting treatment. In the context of this palliative care is meeting with patient and for further clarification of goals of care. Patient is feeling somewhat weak and shaky, his blood pressure is 95/63 with a pulse of 81 sitting, 93/68 with a pulse of 83 standing. He denies dizziness but does feel his blood pressure is low. His counts from yesterday WBC 1.4, hemoglobin 9.3, platelets are holding at 35. Patient last received platelets on 07/13, and has received between 8 and 9 infusions total since diagnosis. His neutrophils remain at 0.1 and lymphs at 1.3. His CMP does not show any significant abnormalities at this time. Please see palliative care discussion, after much discussion and defining patient's goals of care, decision has been made to transition to hospice. Hospice does have an opening this afternoon, will admit given patient's high risk for sequela regarding his declining counts. Past Medical History: CAD with CABG times 01/2009, cholecystectomy 2013, hypertension, high cholesterol, cholelithiasis, BPH, chronic vision loss, anxiety, history of colonoscopy and recent Port-A-Cath placement Social History - Living Situation Living arrangement: At home Living Situation: With spouse/s.o. Support System: Patient is been to [place] for 23 years, does have siblings, his nephew is in the area at [place] with his and available to help. He is a retired musician, they have a krissy home in [place] with dogs. Discussed available support for Bina through family members, he does have a cousin in [place] has offered up, they will have a conversation about how best to support her as he transitions to hospice. Medications/Allergies - Medications Home Medications: Ambulatory Orders Medication Instructions Recorded Confirmed Alprazolam [Xanax] 0.25 mg PO TID PRN 06/01/21 07/11/21 Sulfamethox/Trimeth 800/160 1 tab PO .MWF 06/01/21 07/11/21 [Bactrim Ds] levoFLOXacin [Levofloxacin] 500 mg PO DAILY 06/01/21 07/11/21 Fluconazole [Diflucan] 200 mg PO DAILY 30 Days #60 tablet 06/06/21 07/06/21 allopurinoL [Allopurinol] 300 mg PO DAILY #30 tablet 06/06/21 07/06/21 ondansetron HCL [Ondansetron HCl] 1 mg PO Q8HR 06/14/21 07/11/21 Acyclovir 400 mg PO BID #60 tablet 06/27/21 07/11/21 Lidocaine/Prilocain 2.5% Cream 5 applic TOP BID PRN #1 tu 07/13/21 [Emla 2.5% Cream] oxyCODONE [Roxicodone] 5 mg PO Q4-6H PRN #20 tablet 07/13/21 - Allergies Allergies/Adverse Reactions: Allergies Allergy/AdvReac Type Severity Reaction Status Date / Time No Known Drug Allergies Allergy Verified 05/30/21 15:06 Review of Systems - Constitutional Constitutional: reports: Fatigue (worsening finding more limiting; declining functional status as a result), Weakness, Diaphoresis, Night sweats, Weight stable. denies: Fever, Chills - Eyes Eyes: reports: Corrective lenses - Ears, Nose & Throat Ears, Nose & Throat: reports: Sore throat (has since resolved) - Cardiovascular Cardiovascular: reports: Lightheadedness, Decr. exercise tolerance. denies: Edema - Respiratory Respiratory: reports: SOB with exertion. denies: SOB at rest - Gastrointestinal Gastrointestinal: reports: Early satiety - Genitourinary Genitourinary: reports: Other (difficulty starting stream) - Musculoskeletal Musculoskeletal: reports: Muscle weakness, Other (fall last night) - Integumentary Integumentary: reports: Dryness - Neurological Neurological: reports: General weakness - Psychiatric Psychiatric: reports: Depression, Anxiety. denies: Suicidal (reports thinking about suicide but no plans / actions at this time) - Hematologic/Lymphatic Hematologic/Lymph: reports: Anemia (9.3). denies: Recurrent infections - All Other Systems All Other Systems: reports: Reviewed and negative Physical Exam - Vital Signs Temperature: 97.3 C Pulse Rate: 81 (sitting; 83 standing) Respiratory Rate: 18 Blood Pressure: 95/63 (sitting; 93/68 standing) - Physical Exam General Appearance: positive: No acute distress, Alert. negative: Anxious Eyes Bilateral: positive: Normal inspection ENT: positive: Other (concern for dehydration; feels can take adequate fluids declines IV hydration) Neck: positive: Trachea midline Cardiovascular: positive: Regular rate & rhythm Respiratory: positive: No respiratory distress, Breath sounds nml Abdomen: positive: Soft Skin: positive: Pallor, Dryness, Other (bruising over left eye/orbital area). negative: Bruising Extremities: positive: No pedal edema Neurologic/Psychiatric: positive: Oriented x3, Weakness, Depressed mood/affect, Flat affect Palliative Care - POLST Patient has POLST: Yes POLST Status: DNR, Comfort Measures Pain: No pain Tiredness/Fatigue: Severe (7-10) Performance Status: Patient declining functional status, though is still ambulatory and able to manage his ADLs with pacing. He is resting more and finding is quite frustrating. He does understand he will continue to get weaker. - Palliative Care Discussion: Long involved discussion with patient and regarding patient's current feelings in the context of his declining quality of life. He is feeling quite poorly, worried about the progressive fatigue, and understands his prognosis is poor anyway. He would like to proceed with referral to hospice, stop treatment, and consider with dignity again. We did discuss in the context of this, need to find a prescribing physician and less his PCP is available. Dr. Suh or Dr. Childers the hospice medical anthropology director can be consulting physician. Documented in Dr. Suh's note is second request. We will need to clarify with prescribing physician if this is acceptable or not. Patient continues to feel somewhat relieved with his decision at the end of her conversation, his is quite overwhelmed and tearful. This conversation took many directions in the context of patient's curiosity about end-of-life event consult, prognosis, did share most likely days to weeks particularly in the context of patient's thrombocytopenia. Counseling provided regarding the need for hospice support for relief of pain and suffering, support for his , and in the context if patient were to have some kind of "event". Patient and are in agreement, there is an opening this afternoon, will facilitate transition to hospice services Results - Lab Results Lab results reviewed: Yes Lab and Imaging Results: WBC 1.4, hemoglobin 9.3, hematocrit 27.5, platelets 35, neutrophils 0.1, GFR 59, total protein 7.2 Impression and Recommendations - Palliative Care Impression: This is an anxious 75-year-old gentleman with AML, has received is a cytidine initiated 06/12/2021 for treatment. He has decided today no further treatment, in the context of declining quality of life, and requesting hospice referral. Palliative care facility in conversation regarding goals of care and transition to hospice team Recommendations/Counseling Done: 1. AML. Patient declining further support for treatment. Patient currently not needing transfusions, but has been thrombocytopenic. Patient on prophylactic antibiotics, encouraged to continue at this point until the fine final transition plans to hospice and possible DWD. Patient aware end-of-life event may include sepsis/sequela from thrombocytopenia, or unexpected event. Patient does have POLST with DN AR/DNI. Counseling provided regarding prognosis, expected decline, and answered questions as presented. Call to oncology Dr. Suh, to review patient's decision, is supportive of patient transition to hospice. 2. Hypotension. Patient presents with hypotension, declines IV fluids, feels can orally rehydrate. Patient did have a fall with no further sequela, does have a bruise above eyebrow. Patient with out medications other than Cardura to be titrated, patient does have BPH symptoms no changes made to medication regimen. 3. Advanced care planning. Family conference in response to patient's voiced concerns and wishing to stop treatment. This included myself, Bina his , and patient. Conclusion to transition to hospice, this is communicated to the oncology team, as well as hospice referral is made. Call to end-of-life [facility] for further contact and clarification regarding patient's need for prescribing physician. 75 minutes with review of labs, oncology notes, coordination of care with oncology oncology team, hospice team, [id number] with family meeting, co unseling regarding goals of care and anticipatory guidance provided
== END 2021-07-17 11:01 | disposition home or self-care (01) ==
LOC: PC 11:00
PROVIDERS: ATTEND Nurse Practitioner Adult Health
DX: Z51.5 Encounter for palliative care (principal); C92.00 Acute myeloblastic leukemia, not having achieved remission; Z66 Do not resuscitate; I95.9 Hypotension, unspecified; F41.9 Anxiety disorder, unspecified; R53.83 Other fatigue; R53.1 Weakness; H54.7 Unspecified visual loss; S05.12XA Contusion of eyeball and orbital tissues, left eye, initial encounter; W19.XXXA Unspecified fall, initial encounter; Y92.009 Unspecified place in unspecified non-institutional (private) residence as the place of occurrence of the external cause
CPT/HCPCS: 99215; G2212; 99417